=== PATIENT | male | born 1950 | race Caucasian/White ===

== ENCOUNTER 2017-12-05 08:41 | Day surgery (SDC) | payer MEDICARE ==
[~2017-12-05] VITALS: Ht 170.2 cm; Wt 78.6 kg
[~2017-12-05 08:41] MED LIST: FAMO20 PO; FERR-89 PO; FURO40 PO; KDUR20 PO; MILK150C2 PO; SODIUM CHLORIDE 0.9% 1,000 ML IV ONE; SPIR25 PO
[2017-12-05 09:14] LABS: GLUCOMETER DEV NAME(LOC) SDS 5; GLUCOSE,POINT OF CARE 108 MG/DL (70-110)
[2017-12-05] MEDS ORDERED: FOLI1 PO (09:20)
[2017-12-05] MEDS ORDERED: ASCO500 PO (09:20)
[2017-12-05] MEDS ORDERED: MULT-1203 PO (09:20)
[2017-12-05] MEDS ORDERED: RANI150T7 PO (09:20)
[2017-12-05] MEDS ORDERED: PROP10TA73 PO (09:20)
[2017-12-05] MEDS ORDERED: INSU100V SQ (09:20)
[2017-12-05] MEDS ORDERED: C,E,1CAP PO (09:20)
[2017-12-05] MEDS ORDERED: THIA100T67 PO (09:20)
[2017-12-05] MEDS ORDERED: LIDOCAINE/PF 2% 5 ML VIAL INJ ONE (12:00)
[2017-12-05] MEDS ORDERED: PROPOFOL 1% 20 ML VIAL IVP ONE (12:00)
[2017-12-05] MEDS ORDERED: OXYGEN THERAPY IH SCH (20:00)
== END 2017-12-05 12:00 | disposition home or self-care (01) ==
LOC: SURGERY 08:41
PROVIDERS: ATTEND Specialist
DX: I85.00 Esophageal varices without bleeding (principal); K22.70 Barrett's esophagus without dysplasia; K76.6 Portal hypertension; K31.89 Other diseases of stomach and duodenum; K21.9 Gastro-esophageal reflux disease without esophagitis; E11.9 Type 2 diabetes mellitus without complications; K29.60 Other gastritis without bleeding; F17.210 Nicotine dependence, cigarettes, uncomplicated; Z79.4 Long term (current) use of insulin; Z79.84 Long term (current) use of oral hypoglycemic drugs; Z88.2 Allergy status to sulfonamides; Z72.89 Other problems related to lifestyle; Z98.890 Other specified postprocedural states; Z79.899 Other long term (current) drug therapy
CPT/HCPCS: 43235; 82962; J2704; J3490; J7030

== ENCOUNTER 2020-10-14 10:47 | Day surgery (SDC) | payer MEDICARE ==
[2020-10-13 14:23] LABS: COVID AG,FIA SOURCE NASOPHARYNGEAL
[~2020-10-14] VITALS: Ht 170.2 cm; Wt 68.2 kg
[~2020-10-14 10:47] MED LIST changes: +ASCO500 PO; +C,E,1CAP PO; -FERR-89 PO; +FOLI-130 PO; -KDUR20 PO; +MULT-1203 PO; -SODIUM CHLORIDE 0.9% 1,000 ML IV ONE; +SODIUM CHLORIDE 0.9% 1,000 ML ONE; +SPIR-37 PO; -SPIR25 PO; +THIAMINE HCL100 MG PO
[2020-10-14] MEDS ORDERED: PROPOFOL 1% 20 ML VIAL IVP ONE (10:48)
[2020-10-14] MEDS ORDERED: LIDOCAINE/PF 2% 5 ML VIAL IM ONE (10:48)
[2020-10-14] MEDS ORDERED: SODIUM CHLORIDE 0.9% 1,000 ML IV ONE (12:00)
[2020-10-14 12:15] LABS: GLUCOMETER DEV NAME(LOC) SDS.; GLUCOSE,POINT OF CARE 95 MG/DL (70-110)
== END 2020-10-14 14:10 | disposition home or self-care (01) ==
LOC: SURGERY 10:47
PROVIDERS: ATTEND Internal Medicine Gastroenterology
DX: K70.31 Alcoholic cirrhosis of liver with ascites (principal); K76.6 Portal hypertension; K31.89 Other diseases of stomach and duodenum; D50.9 Iron deficiency anemia, unspecified; J43.9 Emphysema, unspecified; E11.9 Type 2 diabetes mellitus without complications; F17.210 Nicotine dependence, cigarettes, uncomplicated; Z20.822 Contact with and (suspected) exposure to COVID-19; Z79.899 Other long term (current) drug therapy; Z72.89 Other problems related to lifestyle
CPT/HCPCS: 43239; 82962; 87426; C1769; C9803; J2704; J3490; J7030